=== PATIENT | female | born 1940 | race Caucasian/White ===

== ENCOUNTER → 2018-10-15 | Outpatient (CLI) | payer OTHER ==
--- NOTE | 2018-10-15 16:54 | ECHO ---
[email or web address] [address] [address] Main: [phone] Fax: Transthoracic Echocardiogram Name: MARQUIS NELSON MR#: [id number] Study Date: 10/15/2018 Study Time: 02:38 PM Date of : 1940 Age: 78 year(s) Height: 162.6 cm (64 in.) Weight: 47.63 kg (105 lb.) BSA: 1.49 m2 Gender: Female Examination: Echo Indication: New Murmur Image Quality: Contrast: Requested by: Mihir Rankin BP: / Heart Rate: Rhythm: Normal sinus rhythm with ectopy Indication: New Murmur Procedure Staff Used Car Manager: Tanner Nassar RDCS Reading Physician: Allen Yanes MD Requesting Provider: Mihir Rankin Conclusions: Normal size left ventricle. Moderate concentric LV hypertrophy. Normal global systolic LV function. EF is 76 %. Grade 1 diastolic dysfunction (abnormal relaxation). Normal RV function. The left atrium is mildly dilated. The right atrium is mildly dilated. There is mild thickening of the mitral valve leaflets. Moderate mitral annular calcification. Mild mitral valve regurgitation is present. Mean mitral valve gradient 3mmHg. The aortic valve is tri-leaflet. Mild aortic cusp calcification is noted. Mild aortic valve regurgitation is present. Mild calcific aortic valve stenosis. Mean aortic valve gradient 9. 1.8 cm2 (mild ). PHT 649 ms ( mild AI). Mild tricuspid regurgitation is present. The pulmonary artery pressure is mildly increased. Right ventricular systolic pressure measures 34mmHg. Measurements: Chambers Valvular Assessment AV/MV Valvular Assessment TV/PV Normal Normal Normal Name Value Range Name Value Range Name Value Range Ao Alisha (MM): 2.6 cm (2.2 cm-3.7 AV Vmax: 2.02 m/s (1 m/s-1.7 TR Vmax: 2.71 mm/s ( - ) cm) m/s) TR PGmax: 29 mmHg ( - ) AV maxP mmHg ( - ) syst. PAP: 34 mmHg ( - ) Patient: MARQUIS NELSON Study Date: 10/15/2018 Page 1 of 3 02:38 PM IVSd (2D): 1.4 cm (0.6 cm-1.1 AV meanP mmHg ( - ) PV Vmax: 1.13 m/s (0.6 m/s-0.9 cm) LVOT Vmax: 1.29 m/s (0.7 m/s-1.1 m/s) LVDd (2D): 4.3 cm (3.9 cm-5.3 m/s) PV PGmax: 5 mmHg ( - ) cm) (Vmax): 1.8 cm2 ( - ) LVDs (2D): 2.4 cm (2.1 cm-4 (VTI): 2.1 cm ( - ) cm) AR (PHT): 649 ms ( - ) LVPWd (2D): 1.2 cm ( - ) MV E Vmax: 0.70 m/s ( - ) LVOTd 1.9 cm 1.9 cm mm MV A Vmax: 1.26 m/s ( - ) LVEF (2D): 76 (>=54 %) MV E/A: 0.56 ( - ) MV meanP mmHg ( - ) MVA (Vmax): 2.1 m/s ( - ) Continued Measurements: Chambers Valvular Assessment AV/MV Valvular Assessment TV/PV Name Value Name Value Name Value LADs: 3.9 cm MV Annulus: 3.4 cm CVP (est.): 5 mmHg LADs Lon.1 cm MV E' Septal: 0.04 m/s LA Area: 18.5 cm2 MV E/E' Septal: 17.50 LA Volume: 62 ml MV E/E' Lateral: 10.60 LA Volume Index: 41.6 ml/m2 MV VTI: 41.20 cm AR Vmax: 5.03 cm/s AR ERO: 0.120 cm2 AR PISA radius: 0.5 cm AR Reg. Volume: 26.0 ml AR Reg. Fraction: 30 % AR VTI: 214.0 cm Findings: Left Ventricle: Normal size left ventricle. Moderate concentric LV hypertrophy. No ANSELMO is present. Normal global systolic LV function. EF is 76 %. No regional wall motion abnormality. Grade 1 diastolic dysfunction (abnormal relaxation). No LVOT obstruction. Right Ventricle: Normal size right ventricle. Normal RV function. Left Atrium: The left atrium is mildly dilated. Right Atrium: The right atrium is mildly dilated. Mitral Valve: There is mild thickening of the mitral valve leaflets. Moderate mitral annular calcification. Mild mitral valve regurgitation is present. Mean mitral valve gradient 3mmHg. No ANSELMO is present. Aortic Valve: The aortic valve is tri-leaflet. Mild aortic cusp calcification is noted. Mild aortic valve regurgitation is present. Mild calcific aortic valve stenosis. Mean aortic valve gradient 9. 1.8 cm2 (mild ). PHT 649 ms ( mild AI). Tricuspid Valve: The tricuspid valve appears normal. Mild tricuspid regurgitation is present. The pulmonary artery pressure is mildly increased. Right ventricular systolic pressure measures 34mmHg. Pulmonic Valve: The pulmonic valve is normal in appearance and function. Aorta: The aorta is normal. Pericardium: No pericardial effusion. (No Signature Object) Patient: MARQUIS NELSON Study Date: 10/15/2018 Page 2 of 3 02:38 PM Patient: MARQUIS NELSON Study Date: 10/15/2018 Page 3 of 3 02:38 PM [id number]
== END ==
LOC: FCP 14:31
PROVIDERS: ATTEND Family Medicine
DX: R01.1 Cardiac murmur, unspecified (principal)